=== PATIENT | female | born 1980 | race Caucasian/White ===

== ENCOUNTER 2017-02-04 20:57 | Emergency (ER) | payer OTHER ==
[2017-02-04 21:08] VITALS: BP 142/98
--- NOTE | 2017-02-04 21:39 | UC ---
Abdominal Pain Female HPI - HPI Summary HPI Summary: Patient is approximately 6 week . started having gradually increasing right sided pain patient [ain is now severe, experiencing chills and nausea - History of Current Complaint Chief Complaint: UCAbdominalPain Stated Complaint: ABD PAIN/6 WKS PREG Time Seen by Provider: 02/04/17 21:10 Hx Obtained From: Patient ?: Yes Onset/Duration: Sudden Onset, Lasting Hours Timing: Constant Severity Currently: Severe Location: Discrete At: RLQ Radiates: No Radiates to: RLQ Character: Cramping, Sharp Aggravating Factor(s): Nothing Alleviating Factor(s): Nothing Associated Signs and Symptoms: Positive: Negative Allergies/Adverse Reactions: Allergies Allergy/AdvReac Type Severity Reaction Status Date / Time No Known Allergies Allergy Verified 02/04/17 21:08 Home Medications: Home Medications Levothyroxine TAB* [Synthroid TAB*] 150 mcg PO DAILY 02/04/17 [History Confirmed 02/04/17] Vit W/ Ferrous Fumara [ Complete] 1 tab PO DAILY 02/04/17 [ History Confirmed 02/04/17] PMH/Surg Hx/FS Hx/Imm Hx Previously Healthy: Yes Endocrine History Of: Reports: Thyroid Disease - hypothyroid, Hypothyroidism - Surgical History Surgical History: Yes Surgery Procedure, Year, and Place: D&C. Laproscopic ABD - Family History Known Family History: Negative: Hypertension - Social History Alcohol Use: None Substance Use Type: None Smoking Status (MU): Never Smoked Tobacco - Immunization History Most Recent Influenza Vaccination: unknown Most Recent Tetanus Shot: 11/25/11 Review of Systems Constitutional: Chills Skin: Negative Eyes: Negative ENT: Negative Respiratory: Negative Cardiovascular: Negative Gastrointestinal: Abdominal Pain Genitourinary: Negative Motor: Negative Neurovascular: Negative Musculoskeletal: Negative Neurological: Negative Psychological: Negative All Other Systems Reviewed And Are Negative: Yes Physical Exam Triage Information Reviewed: Yes Appearance: Well-Appearing, Well-Nourished, Pain Distress Vital Signs: Initial Vital Signs Temp 98.4 F 02/04/17 21:02 Pulse 112 02/04/17 21:02 Resp 14 02/04/17 21:02 BP 142/98 02/04/17 21:02 Pulse Ox 100 02/04/17 21:02 Vital Signs Reviewed: Yes Eye Exam: Normal Eyes: Positive: Conjunctiva Clear ENT Exam: Normal ENT: Positive: Hearing grossly normal, Pharynx normal, TMs normal Dental Exam: Normal Neck exam: Normal Neck: Positive: Supple, Nontender, No Lymphadenopathy Respiratory Exam: Normal Respiratory: Positive: Chest non-tender, Lungs clear, Normal breath sounds Cardiovascular Exam: Normal Cardiovascular: Positive: RRR, No Murmur, Pulses Normal Abdominal Exam: Normal Abdomen Description: Positive: CVA Tenderness (R) - neg, CVA Tenderness (L) - neg, Other: - RLQ tender on palpation, neg rebound tenderness, no palpable masses Musculoskeletal Exam: Normal Musculoskeletal: Positive: Strength Intact, ROM Intact, No Edema Neurological Exam: Normal Neurological: Positive: Alert, Muscle Tone Normal Psychological Exam: Normal Skin Exam: Normal Abd Pain Female Course/Dx - Course Course Of Treatment: hx obtained, exam performed, UA was neg, UCG Positive, transferred to [facility] for further evaluation - Differential Dx/Diagnosis Provider Diagnoses: RLQ pain. - Physician Notification/Consults Discussed Patient Care With: mireya Rucker Discharge - Discharge Plan Condition: Stable Disposition: [facility]
== END 2017-02-04 21:41 | disposition short-term general hospital (02) ==
LOC: UCCORT 20:57
DX: O26.891 Other specified pregnancy related conditions, first trimester (principal); R10.31 Right lower quadrant pain; Z3A.01 Less than 8 weeks gestation of pregnancy; E03.9 Hypothyroidism, unspecified
CPT/HCPCS: 81003; 84702; 99212; G0463

== ENCOUNTER 2017-02-06 13:07 | Day surgery (SDC) | payer OTHER ==
[~2017-02-06 13:07] MED LIST: Bupivacaine 0.25% SDV* 30 ML ONE
[2017-02-06] MEDS ORDERED: Midazolam* 1 MG/ML 5 ML VIAL (5 MG) ONE (13:38)
[2017-02-06] MEDS ORDERED: Succinylcholine* 20 MG/ML 10 ML VIAL ONE (13:54)
[2017-02-06] MEDS ORDERED: Propofol* 10 MG/ML 20 ML BTL IV PUSH ONE (13:54)
[2017-02-06] MEDS ORDERED: Dexamethasone IV* 4 MG/ML 1 ML (4 MG) ONE (13:54)
[2017-02-06] MEDS ORDERED: Ondansetron INJ* 2 MG/ML VIAL ONE (13:54)
[2017-02-06] MEDS ORDERED: fentaNYL* 50 MCG/ML 2 ML VIAL (100 MCG VIAL) ONE ×3 (13:56→15:12)
[2017-02-06] MEDS ORDERED: Atracurium* 10 MG/ML 10 ML VIAL ONE (14:03)
[2017-02-06 14:05] LABS: Hematocrit 38 % (35-47); Hemoglobin 12.7 g/dl (12.0-16.0); Mean Corpuscular HGB Conc 33 g/dl (31-36); Mean Corpuscular Hemoglobin 29 pg (27-31); Mean Corpuscular Volume 89 fL (80-97); Red Blood Count 4.32 10^6/ul (4.0-5.4); Red Cell Distribution Width 13 % (10.5-15); White Blood Count 13.8 10^3/ul (3.5-10.8)
[2017-02-06 14:06] LABS: Add Diff/Slide Review? Slide Review Added; Comments Flag Yes
[2017-02-06 14:24] LABS: Mean Platelet Volume 8 um3 (7.4-10.4)
[2017-02-06] MEDS ORDERED: HYDROmorphone* 1 MG/ML 1 ML SYR IV PRN (14:56)
[2017-02-06] MEDS ORDERED: Ondansetron INJ* 2 MG/ML VIAL IV PRN (14:56)
[2017-02-06] MEDS ORDERED: DiMENhydriNATE IV* 50 MG/ML VIAL IV PUSH PRN (14:56)
[2017-02-06] MEDS ORDERED: Ketorolac INJ* 30 MG/ML 1 ML VIAL ONE (14:57)
[2017-02-06] MEDS ORDERED: Glycopyrrolate IV* 0.2 MG/ML 1 ML VIAL ONE (15:00)
[2017-02-06] MEDS ORDERED: Neostigmine Methylsulfate* 2 MG/2 ML SYRINGE ONE (15:00)
[2017-02-06] MEDS ORDERED: Acetaminop/Codeine 30 MG TAB* 1 TAB (300 MG/30 MG) PO PRN (15:06)
[2017-02-06] MEDS: fentaNYL* 50 MCG/ML 2 ML VIAL (100 MCG VIAL) IV PRN ×4 (15:14→16:00)
[2017-02-06] MEDS ORDERED: Acetaminop/Codeine 30 MG TAB* 1 TAB (300 MG/30 MG) ONE (16:03)
[2017-02-06 17:05] VITALS: BP 107/59
--- NOTE | 2017-02-07 02:51 | OP ---
DATE OF OPERATION: 02/06/17 [facility] DATE OF : 82 SURGEON: Chanel Alcantar MD [employer] PROFESSOR: ORLY Rosen ANESTHESIOLOGIST: Luis Mendez MD ANESTHESIA: General PRE-OP DIAGNOSIS: Ruptured right ectopic . POST-OP DIAGNOSIS: Ruptured right ectopic . OPERATIVE PROCEDURE: Laparoscopic right salpingectomy. EBL: 200 mL. FLUID: Crystalloid. DRAINS: Wilkinson catheter with 250 cc of clear urine. FINDINGS: Dilated right tube with clot and ectopic extruding from the end of the tube. Normal appearing uterus, ovaries and left tube. COMPLICATIONS: None. DESCRIPTION OF PROCEDURE: After informed consent was signed, the patient was taken to the operating room where she was given general anesthesia that was found to be adequate. She was prepped and draped in the dorsal lithotomy position in the [facility]. A speculum was placed into the vagina to expose the cervix and the anterior lip of the cervix was grasped with a single tooth tenaculum. The Quintiles manipulator was inserted into the cervix. Gloves were changed and attention was turned to the abdomen. The infraumbilical fold was grasped with Allis clamps, tented up and injected with Marcaine with epinephrine. A 10 mm incision was then made with a scalpel. Blunt dissection was used to dissect down to the underlying layer of fascia. The fascia was grasped with Chris clamps and incised to the midline. A Visiport trocar was then used to enter through the peritoneum. The trocar was removed and CO2 was turned on. The abdomen was then insufflated. The previously mentioned findings were noted in the abdomen. Two lateral ports were placed, 5 mm in size under direct visualization. Next, the right tube was grasped and the LigaSure device was used to clamp, cauterize and cut underneath the tube through the mesosalpinx. The tube was then transected at the proximal portion. The camera was switched to a 5 mm camera and inserted in the left side port and a 10 mm Endo Catch bag was inserted through the umbilical port. The specimen was placed into the Endo Catch bag and removed from the abdominal cavity. Suction irrigation was then used to clean as much blood as possible out of the abdominal cavity. Good hemostasis was noted. The lateral side trocars were removed under direct visualization. The umbilical port was then removed. The fascia was closed with 0 Vicryl in a [id number] suture. The skin was closed with 4-0 Vicryl in a running subcuticular fashion. The manipulator was removed from the vagina prior to finishing the procedure as well as Wilkinson catheter. Mastisol and Steri-Strips were placed. The patient was cleaned and placed back into supine position, awakened from anesthesia and moved to the stretcher and taken to the recovery room in stable condition. [id number]/[facility] #: [id number] ROMI
== END 2017-02-06 17:30 | disposition home or self-care (01) ==
LOC: OR 13:07
PROVIDERS: ATTEND Obstetrics & Gynecology
DX: O00.10 Tubal pregnancy without intrauterine pregnancy (principal); E03.9 Hypothyroidism, unspecified
CPT/HCPCS: 36415; 85025; 86850; 86900; 86901; 88305; A9270-GY; J0330; J1100; J1885; J2250; J2405; J2704; J3010

== ENCOUNTER 2018-07-24 07:24 | Emergency (ER) | payer BC ==
[2018-07-24 07:39] VITALS: BP 125/85
--- NOTE | 2018-07-24 08:12 | UC ---
Complaint Female HPI - HPI Summary HPI Summary: 37 year old female with UTI Sx . c/o dysuria, urinary urgency/frequency x 3 days. took AZO yesterday but not today. no fever. no n/v/d [ End ] - History Of Current Complaint Chief Complaint: UCGU Stated Complaint: UTI SYMPTOMS Time Seen by Provider: 07/24/18 08:09 Hx Obtained From: Patient Hx Last Menstrual Period: 07/07/18 Onset/Duration: Gradual Onset Timing: Constant Severity Initially: Mild Pain Intensity: 2 Aggravating Factor(s): Urination Related Hx: Similar Episode/Dx as: - Allergies/Home Medications Allergies/Adverse Reactions: Allergies Allergy/AdvReac Type Severity Reaction Status Date / Time No Known Allergies Allergy Verified 07/24/18 07:36 PMH/Surg Hx/FS Hx/Imm Hx Previously Healthy: Yes Endocrine History: Thyroid Disease - Surgical History Surgical History: Yes Surgery Procedure, Year, and Place: D&C. Laproscopic ABD - Family History Known Family History: Negative: Hypertension - Social History Occupation: Employed Full-time Alcohol Use: Rare Substance Use Type: None Smoking Status (MU): Never Smoked Tobacco - Immunization History Most Recent Influenza Vaccination: unknown Most Recent Tetanus Shot: 11/25/11 Review of Systems Genitourinary: Dysuria, Frequency, Urgency Is Patient Immunocompromised?: No All Other Systems Reviewed And Are Negative: Yes Physical Exam Triage Information Reviewed: Yes Appearance: Well-Appearing, No Pain Distress, Well-Nourished Vital Signs: Initial Vital Signs Temp 98 F 07/24/18 07:34 Pulse 77 07/24/18 07:34 Resp 16 07/24/18 07:34 BP 125/85 07/24/18 07:34 Pulse Ox 100 07/24/18 07:34 Eye Exam: Normal ENT Exam: Normal Dental Exam: Normal Neck exam: Normal Neck: Positive: 1 Respiratory Exam: Normal Cardiovascular Exam: Normal Abdominal Exam: Normal Musculoskeletal Exam: Normal Neurological Exam: Normal Psychological Exam: Normal Skin Exam: Normal Complaint Female Dx - Differential Dx/Diagnosis Differential Diagnosis/HQI/PQRI: Urinary Tract Infection Provider Diagnoses: UTI Discharge - Sign-Out/Discharge Documenting (check all that apply): Patient Departure All imaging exams completed and their final reports reviewed: No Studies - Discharge Plan Condition: Good Disposition: HOME Prescriptions: Sulfamethox/Trimethoprim DS* [Bactrim DS 800/160 TAB*] 1 tab PO BID 5 Days #10 tab Patient Education Materials: Urinary Tract Infection in Women (ED) Referrals: Dylan Hernandez MD [Primary Care Provider] - 7 Days - Billing Disposition and Condition Condition: GOOD Disposition: Home
--- NOTE | 2018-07-26 07:16 | UC ---
- Progress Note Progress Note: notify pt no UTI stop antibiotic see primary if still symptomatic Discharge - Sign-Out/Discharge Documenting (check all that apply): Post-Discharge Follow Up All imaging exams completed and their final reports reviewed: No Studies - Discharge Plan Condition: Good Disposition: HOME Prescriptions: Sulfamethox/Trimethoprim DS* [Bactrim DS 800/160 TAB*] 1 tab PO BID 5 Days #10 tab Patient Education Materials: Urinary Tract Infection in Women (ED) Referrals: Dylan Hernandez MD [Primary Care Provider] - 7 Days - Billing Disposition and Condition Condition: GOOD Disposition: Home
== END 2018-07-24 08:24 | disposition home or self-care (01) ==
LOC: UCCORT 07:24
DX: N39.0 Urinary tract infection, site not specified (principal)
CPT/HCPCS: 81003; 87086; 99212; G0463

== ENCOUNTER 2018-11-25 13:41 | Emergency (ER) | payer BC, OTHER ==
[2018-11-25 14:03] VITALS: BP 113/79
[2018-11-25] MEDS ORDERED: Acetaminophen TAB* 325 MG PO ONE (15:39)
--- NOTE | 2018-11-25 15:41 | UC ---
Head Injury HPI - HPI Summary HPI Summary: 38-year-old woman comes in with a chief complaint of a head injury. This morning she stood up and struck her head accidentally on a metal pipe. It struck her occiput. It hurt quite a bit. Still does hurt some. Patient has a headache. Since then she's noticed her thought processes also she feels a little confused. The symptoms were worse when she was on the screen at work. She has not taken any ibuprofen or Tylenol. No vision changes weakness numbness difficulty with speech or any other focal neurologic deficit. She is not on blood thinners. No neck pain denies any other injuries. The light did bother her eyes some work. Feels fatigued. - History Of Current Complaint Chief Complaint: UCHeadInjury Stated Complaint: HEAD INJURY Time Seen by Provider: 11/25/18 15:26 Hx Last Menstrual Period: 11/11/18 Pain Intensity: 6 - Allergies/Home Medications Allergies/Adverse Reactions: Allergies Allergy/AdvReac Type Severity Reaction Status Date / Time No Known Allergies Allergy Verified 11/25/18 13:57 PMH/Surg Hx/FS Hx/Imm Hx Previously Healthy: Yes - Surgical History Surgical History: Yes Surgery Procedure, Year, and Place: D&C. Laproscopic procedure for ectopic 2016 - Family History Known Family History: Negative: Hypertension - Social History Alcohol Use: Occasionally Substance Use Type: None Smoking Status (MU): Never Smoked Tobacco - Immunization History Most Recent Influenza Vaccination: unknown Most Recent Tetanus Shot: 11/25/11 Review of Systems All Other Systems Reviewed And Are Negative: Yes Constitutional: Positive: Fatigue Skin: Positive: Negative Eyes: Positive: Photophobia ENT: Positive: Negative Respiratory: Positive: Negative Cardiovascular: Positive: Negative Gastrointestinal: Positive: Negative. Negative: Nausea Genitourinary: Positive: Negative Motor: Positive: Negative Neurovascular: Positive: Negative Musculoskeletal: Positive: Negative Neurological: Positive: Negative, Other - SEE HPI Psychological: Positive: Negative Is Patient Immunocompromised?: No Physical Exam Triage Information Reviewed: Yes Appearance: Well-Appearing, No Pain Distress, Well-Nourished Vital Signs: Initial Vital Signs Temp 98.3 F 11/25/18 13:58 Pulse 75 11/25/18 13:58 Resp 18 11/25/18 13:58 BP 113/79 11/25/18 13:58 Pulse Ox 100 11/25/18 13:58 Vital Signs Reviewed: Yes Eye Exam: Normal Eyes: Positive: Conjunctiva Clear, Other: - PERRLA/EOMI ENT: Positive: Pharynx normal, TMs normal, Other - Mild tenderness to palpation occiput. No crepitus. No skin break. Neck exam: Normal Neck: Positive: Supple, Nontender Respiratory: Positive: Lungs clear, Normal breath sounds, No respiratory distress Cardiovascular: Positive: RRR Musculoskeletal Exam: Normal Musculoskeletal: Positive: Strength Intact, ROM Intact Neurological Exam: Normal Neurological: Positive: Alert, Muscle Tone Normal Psychological Exam: Normal Psychological: Positive: Normal Response To Family, Age Appropriate Behavior Skin Exam: Normal Head Injury Course/Dx - Course Course Of Treatment: We discussed discussed brain imaging with a CT. Patient has not been throwing up. There was no loss of consciousness. No focal neurologic deficit. Not on a blood thinner. GCS is 15 out of 15. At this time the plan is to not get a head CT and treat conservatively for concussion. Patient will follow up with her primary care doctor as needed. We discussed getting reevaluated if anything worsens or any questions or concerns. - Differential Dx/Diagnosis Provider Diagnosis: Concussion, Head injury Discharge - Sign-Out/Discharge Documenting (check all that apply): Patient Departure All imaging exams completed and their final reports reviewed: No Studies - Discharge Plan Condition: Stable Disposition: HOME Patient Education Materials: Concussion (ED), Head Injury (ED) Forms: *Work Release Referrals: Dylan Hernandez MD [Primary Care Provider] - Additional Instructions: FOLLOW UP WITH YOUR DOCTOR IF NOT COMPLETELY IMPROVED. GET RECHECKED FOR ANY WORSENING OF YOUR CONDITION OR QUESTIONS OR CONCERNS. - Billing Disposition and Condition Condition: STABLE Disposition: Home
== END 2018-11-25 15:53 | disposition home or self-care (01) ==
LOC: UCEAST 13:41
DX: S06.0X0A Concussion without loss of consciousness, initial encounter (principal); W22.8XXA Striking against or struck by other objects, initial encounter; Y92.9 Unspecified place or not applicable
CPT/HCPCS: A9270-GY

== ENCOUNTER 2019-04-08 08:34 | Day surgery (SDC) | payer BC ==
[~2019-04-08 08:34] MED LIST changes: +Buffered Lidocaine 1% SYRIN* 1 ML/SYRINGE INTRADERM ONE; -Bupivacaine 0.25% SDV* 30 ML ONE; +Lactated Ringers 1000 ML Bag* 1,000 ML IV SCH
[2019-04-08] MEDS ORDERED: Lidocaine 2.5%/Prilocain 2.5%* 5 GM TUBE ONE (08:53)
[2019-04-08] MEDS ORDERED: Buffered Lidocaine 1% SYRIN* 1 ML/SYRINGE INTRADERM ONE ×2 (08:54→09:21)
[2019-04-08] MEDS ORDERED: ceFAZolin 2 GM in NS PREMIX(*) 2 GM/100 ML BAG IVPB ONE (08:54)
--- NOTE | 2019-04-08 10:27 | HP ---
H&P (Free Text) History and Physical: Surgery H&P Ms. Lomeli is a 38 y.o. female who had a routine exam for breast pain during which a possible lump was identified. Follow up imaging identified a lump was found and ultimately biopsied. 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 At the time Dr. Montemayor saw her there was no obvious palpable mass so needle localization was arranged. Ms. Lomeli denies other breast problems. Please see H&P of March 02 for further details. PMHx: hypothyroidism Meds: synthroid NKDA SH: Neg tob., occ. EtOH, neg. IVDA FH: DM, thyroid disease PE: general: WDWN female in NAD Initial Vital Signs Temp 97.3 F 04/08/19 08:44 Pulse 76 04/08/19 08:44 Resp 16 04/08/19 08:44 BP 128/87 04/08/19 08:44 Pulse Ox 100 04/08/19 08:44 HEENT: neg. cervical or supraclavicular adenopathy; oral mucosa moist; conjunctivae pink, neg. scleral icterus. Breasts: symmetric without skin dimpling or nipple retraction; palpation reveal dense, knobby tissue without any masses felt in either breast. lungs: clear to ausc. heart: reg. abd: good BS, soft, non-tender ext: neg. cyanosis, edema. A/P: 38 y.o. female with right breast that warrants excision. Since it is not palpable, wire localization is required. I have discussed with her the nature of surgery, its risks, benefits, and alternatives. She understands and agrees to proceed. She is willing to proceed with me as surgeon despite having met with Dr. Montemayor initially. Elizabet
[2019-04-08] MEDS ORDERED: Dexamethasone IV* 4 MG/ML 1 ML (4 MG) IV SLOW PU ONE (10:42)
[2019-04-08] MEDS ORDERED: Famotidine IV* 10 MG/ML 2 ML (20 mg) IV SLOW PU ONE (10:42)
[2019-04-08] MEDS ORDERED: Famotidine IV* 10 MG/ML 2 ML (20 mg) ONE (11:41)
[2019-04-08] MEDS ORDERED: Dexamethasone IV* 4 MG/ML 1 ML (4 MG) ONE ×2 (11:41→13:46)
[2019-04-08] MEDS ORDERED: Midazolam* 1 MG/ML 2 ML VIAL (2 MG) ONE ×3 (12:08→13:26)
[2019-04-08] MEDS ORDERED: Propofol* 500 MG/50 ML BTL ONE (12:09)
[2019-04-08] MEDS ORDERED: Lidocaine 2% PF * 5 ML VIAL ONE (12:09)
[2019-04-08] MEDS ORDERED: Lidocaine 1% w EPI 1:200,000* 30 ML VIAL ONE (12:11)
[2019-04-08] MEDS ORDERED: Bupivacaine 0.5%* 50 ML VIAL ONE (12:11)
[2019-04-08] MEDS ORDERED: Propofol* 10 MG/ML 20 ML BTL ONE (13:19)
[2019-04-08] MEDS ORDERED: Ketorolac INJ* 30 MG/ML 1 ML VIAL ONE (13:46)
[2019-04-08] MEDS ORDERED: Metoclopramide IV* 5 MG/ML 2 ML VIAL ONE (13:46)
[2019-04-08] MEDS ORDERED: Ondansetron INJ* 2 MG/ML VIAL ONE (13:46)
[2019-04-08] MEDS ORDERED: oxyCODONE TAB* 5 MG TAB PO PRN (13:50)
[2019-04-08] MEDS ORDERED: HYDROmorphone INJ1* 1 MG/ML SYRINGE IV PRN (13:50)
[2019-04-08] MEDS ORDERED: Acetaminophen TAB* 325 MG PO PRN (13:50)
[2019-04-08] MEDS ORDERED: Naloxone* 0.4 MG/ML 1 ML VIAL IV PRN (13:50)
[2019-04-08] MEDS ORDERED: DiMENhydriNATE IV* 50 MG/ML VIAL IV PUSH PRN (13:50)
--- NOTE | 2019-04-08 14:32 | BRIEFOPN ---
Brief Operative Note - Surgery Procedures: Procedures MANUAL ASSIST TANISHA NEC (04/22/13) 04/08/19 Op Note Pre-op dx: right breast mammographic abnormality Post-op dx: same Procedure: Needle localization excision of right breast mammographic abnormality Surgeon: Edvin Asst: None Anesth: local-MAC-->general EBL: 5 cc Complications: none SCDs: on during surgery Abx: given pre-op Pt. tolerated procedure well and was transferred to in a stable condition. CLFoster
[2019-04-08 15:17] VITALS: BP 103/53
--- NOTE | 2019-04-08 15:23 | OP ---
CC: Dr. Dylan Hernandez * DATE OF OPERATION: 04/08/19 - SDS DATE OF : 82 SURGEON: Kira Pardo MD. PROJECT CONTROLS SPECIALIST: There was no offset assistant press operator for this case. PRE-OP DIAGNOSIS: Right breast mammographic abnormality. POST-OP DIAGNOSIS: Right breast mammographic abnormality. OPERATIVE PROCEDURE: Needle localization and excision of right breast mammographic abnormality. INDICATIONS: Ms. Lomeli is a 38-year-old woman who had mammographic abnormality identified when she had some breast pain. This was biopsied and thought to be a fibroadenoma, but on the phyllodes tumor spectrum, so she was advised to have it removed. She was therefore prepared for surgery, and on the morning of surgery, she under-went needle localization without difficulty and was then brought to the operating room. DESCRIPTION OF PROCEDURE: She was placed on the OR table in the supine position and given IV sedation. The right breast was prepped and draped in the usual sterile fashion taking care not to dislodge the localizing wire. Then, after infiltrating with local anesthetic, a curvilinear elliptical incision encompassing the wire was made, subcutaneous tissue was divided with electrocautery. In the process of doing this, it became recognized that local MAC anesthesia was not going to be adequate, so she was given general anesthesia. Additional dissection was continued with electro-cautery to excise a mass of tissue from around the wire. It was removed from the breast and marked in the usual fashion and handed off as a specimen. Hemostasis was achieved with electrocautery and the cavity was marked with clips and then additional local was instilled in the wound. Closure was accomplished with 3-0 Vicryl in the subcutaneous layer. The skin was closed with 4-0 Prolene in a subcuticular fashion. The report came back from Radiology that the specimen contained the abnormality. Steri-Strips were applied, and a dry sterile dressing was applied. All sponge and instrument counts were correct. The patient tolerated the procedure well and was transferred to Recovery in a stable condition. [id number]/[facility] #: [id number] [facility] SYSTEMStaci
== END 2019-04-08 15:22 | disposition home or self-care (01) ==
LOC: OR 08:34
PROVIDERS: ATTEND Surgery
DX: D24.1 Benign neoplasm of right breast (principal); E03.9 Hypothyroidism, unspecified
CPT/HCPCS: 77061; 81025; 88307; A9270-GY; G0279; J0690; J1100; J1885; J2001; J2250; J2405; J2704; J2765; J3490